=== PATIENT | female | born 1980 | race Caucasian/White ===

== ENCOUNTER 2021-06-04 09:13 | Outpatient (CLI) | payer OTHER, SELFPAY ==
--- NOTE | ~2021-06-04 | MM_ITS ---
EXAMINATION: MM screening [facility] BI w gertrude HISTORY: Screening mammogram TECHNIQUE: Craniocaudal and mediolateral oblique 3-D tomosynthesis images were obtained and synthetic 2-D images were generated. CAD analysis was submitted and interpreted. COMPARISON: 11/26/2018 BREAST PARENCHYMAL COMPOSITION: The breasts are extremely dense, which lowers the sensitivity of mamm ography. FINDINGS: An asymmetry in the posterior third of the left breast on the craniocaudal is stable, consi stent with benign finding. There is no evidence of suspicious mass, calcification, or architectural d istortion to suggest malignancy in either breast. There has been no suspicious interval change. IMPRESSION: 1. No mammographic evidence of malignancy. 2. Recommend routine screening mammography in one year. BI-RADS Category 2: Benign finding(s). Reviewed, dictated and finalized at location A.
== END 2021-06-04 09:14 | disposition home or self-care (01) ==
LOC: ANHIMG 09:20
PROVIDERS: PCP Family Medicine; Visit Provider Family Medicine
DX: Z12.31 Encounter for screening mammogram for malignant neoplasm of breast (principal)
CPT/HCPCS: 77063; 77067

== ENCOUNTER 2022-11-04 23:13 | Emergency (ER) | payer OTHER, SELFPAY ==
--- NOTE | ~2022-11-04 | CT_ITS ---
EXAMINATION: CT abdomen pelvis w con DATE: 11/05/2022 02:36 INDICATION: Lower abdominal pain, fever, nausea, vomiting and diarrhea. TECHNIQUE: Computed tomography (CT) of the abdomen and pelvis was performed with 100 mL Omnipaque-350 intravenous contrast. Automated exposure control and iterative reconstruction technique were employe d. The dose-length product was 932.86 mGy-cm. COMPARISON: None FINDINGS: Lung bases are clear. Heart size is normal. No pericardial or pleural effusion. Small sliding-type hi atal hernia. Liver, gallbladder, spleen, pancreas, left kidney and bilateral adrenal glands are noel l. 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 9 mm cyst at the lower pole of the right kidney. Bladder, anteverted uterus and bilateral adnexa are unre markable. Normal appendix. There is fluid throughout the colon consistent with diarrhea. There is muc osal enhancement along the sigmoid colon which demonstrates a featureless ahaustral pattern. There is also mild wall thickening at the distal ileum. No bowel obstruction. No abscess or free intraperiton eal gas or fluid. No pathologically enlarged abdominal or pelvic lymphadenopathy. Mild scattered dege nerative skeletal changes. IMPRESSION: 1. There is mild edematous wall thickening in the distal small bowel consistent with nonspecific ilei tis which could be infectious or inflammatory in etiology including Crohn's disease. 2. Mucosal enhancement with featureless haustral pattern in the distal sigmoid colon but without sign ificant wall thickening or potentially sequela of prior colitis. Reviewed, dictated and finalized at location A. UNTING AUDITOR IMPRESSION: 1. There is mild edematous wall thickening in the distal small bowel consistent with nonspecific ileitis which could be infectious or inflammatory in etiology including Crohn's disease. 2. Mucosal enhancement with featureless haustral pattern in the distal sigmoid colon but without significant wall thickening or potentially sequela of prior c olitis.
--- NOTE | ~2022-11-04 | XR_ITS ---
EXAMINATION: XR chest 2V DATE: 11/05/2022 03:42 INDICATION: Fever, abdominal pain and diarrhea TECHNIQUE: PA and lateral views of the chest were obtained. COMPARISON: Chest radiograph dated 10/30/2016 FINDINGS: The lungs remain clear with no focal airspace opacities, pulmonary edema, pleural effusion or pneumot horax. The cardiomediastinal silhouette is normal. Mild thoracic dextrocurvature with mild spondylosi s. IMPRESSION: 1. No acute cardiopulmonary disease. Reviewed, dictated and finalized at location A. EKEEPING/LAUNDRY SUPERVISOR
[2022-11-04 23:17] VITALS: BP 146/94; PULSE 114; RESP 18; TEMP 37.3; O2SAT 99
[2022-11-05] VITALS (24 sets, daily range): BP systolic 105–129; BP diastolic 66–79; PULSE 92; RESP 17; TEMP 38.3; O2SAT 96–99
[2022-11-05 00:02] LABS: Basophils Absolute Auto 0.1 K/mm3 (0.0-0.1); Basophils Percent Auto 0.4 % (0.2-1.2); Eosinophils Absolute Auto 0.1 K/mm3 (0-0.3); Eosinophils Percent Auto 0.7 % (0-4.4); Hematocrit 42.1 % (37.0-47.0); Hemoglobin 14.3 g/dL (12.0-15.0); Immature Granulocyte Absolute 0.05 K/mm3 (0.00-0.031); Immature Granulocyte Percent A 0.4 % (0-0.5); Lymphocytes Absolute Auto 0.81 K/mm3 (0.9-3.2); Lymphocytes Percent Auto 6.2 % (18.3-44.2); Mean Corpuscular Hemoglobin 29.1 pg (26-34); Mean Corpuscular Volume 85.6 fl (80-100); Mean Platelet Volume 10.9 fl (7.4-10.4); Monocytes Percent Auto 7.7 % (2.6-8.5); Neutrophils Percent Auto 84.6 % (45.5-73.1); Platelet Count Result 267 k/mm3 (150-375); Red Blood Count 4.92 M/mm3 (4.2-5.4); Red Cell Distribution Width 13.3 % (11.5-14.5)
[2022-11-05 00:16] LABS: Appearance Urine Clear (Clear); Bacteria Urine None Seen /hpf; Bilirubin Urine Negative (Negative); Blood Urine 3+ (Negative); Color Urine Yellow (Yellow); Glucose Urine UA Negative (Negative); Ketones Urine Negative (Negative); Leukocyte Esterase Ur Trace LEU/UL (Negative); Nitrate Urine Negative (Negative); Non Pathogenic Casts 0-2; Protein Urine Negative (Negative); RBC Urine 0-2 /hpf (0-2); Specific Grav Ur 1.008 (1.001-1.035); Squamous Epithelial Cell Urine Occasional /hpf (Few); Urobilinogen Urine 0.2 mg/dL (<2.0); pH Urine 5.5 (5.0-9.0)
[2022-11-05 00:24] LABS: Add Urine Microscopic? YES
--- NOTE | 2022-11-05 01:29 | ED.GENADULT ---
HPI - General Adult General Chief complaint: Fever <JOYCELYN Harden Last Filed: 11/05/22 03:35> Stated complaint: fever <JOYCELYN Harden Last Filed: 11/05/22 03:35> Time Seen by Provider: 11/05/22 00:29 <Fernanda Michael PA-C - Last Filed: 11/05/22 03:35> Source: patient <JOYCELYN Harden Last Filed: 11/05/22 03:35> Mode of arrival: ambulatory <JOYCELYN Harden Last Filed: 11/05/22 03:35> Limitations: no limitations <JOYCELYN Harden Last Filed: 11/05/22 03:35> History of Present Illness HPI narrative: Patient is a 42-year-old female who presents to the ED with multiple complaints. Patient reports she began feeling unwell yesterday (). She complained of a fever up to 101 ?F at home, nausea, diarrhea, lower abdominal pain. She took Tylenol at home but denied relief of her fever, which prompted her presentation. Patient states she is concerned she may have an infection as she left a tampon in for 24 hours. She states she remove this at 8 PM last night (). She forgot it was still in and reported having an odor to it when she removed it. She otherwise denies any cough, cold symptoms, chest pain, difficulty breathing, urinary symptoms. Denies sick contacts. <Fernanda Michael PA-C - Last Filed: 11/05/22 03:35> Related Data Allergies/adverse reactions: Allergies Allergy/AdvReac Type Severity Reaction Status Date / Time No Known Allergies Allergy Verified 11/05/22 00:05 <Fernanda Michael PA-C - Last Filed: 11/05/22 03:35> Review of Systems Review of Systems: CONSTITUTIONAL: See HPI. ENT: Denies rhinorrhea, congestion, sore throat. CARDIOVASCULAR: Denies chest pain. RESPIRATORY: Denies cough or dyspnea. GASTROINTESTINAL: See HPI. GENITOURINARY: Denies dysuria or hematuria. <Fernanda Michael PA-C - Last Filed: 11/05/22 03:35> All systems reviewed & are unremarkable except as noted in HPI and below <Fernanda Michael PA-C - Last Filed: 11/05/22 03:35> [facility] Past Medical History Medical History: Medical History Depression <Fernanda Michael PA-C - Last Filed: 11/05/22 03:35> Surgical History Surgical History: Surgical History (Updated 11/05/22 @ 01:36 by Fernanda Michael PA-C) No pertinent past surgical history <Fernanda Michael PA-C - Last Filed: 11/05/22 03:35> Social History Social History: Social History Smoking status: Former smoker Second hand tobacco smoke exposure: No Smoking end date: 08/31/06 Alcohol intake: current <Fernanda Michael PA-C - Last Filed: 11/05/22 03:35> Exam Narrative: GENERAL: Mildly ill appearing, obese, non-toxic, in no acute distress. HEAD: Normocephalic, atraumatic. NECK: Supple. No adenopathy, no masses. RESPIRATORY: Airway patent, respirations nonlabored. Clear to auscultation bilaterally, no rales, rhonchi, wheezing. CARDIOVASCULAR: Regular rate and rhythm without murmurs, rubs, or gallops. Radial pulses 2+ and equal bilaterally. ABDOMINAL: Soft, tenderness throughout lower abdomen, worst over suprapubic region, nondistended, no hepatosplenomegaly. Normoactive BS. MUSCULOSKELETAL: Moves all extremities. Strength/ROM intact without gross deformities. SKIN: Warm, dry, normal color. No rashes. No desquamation. NEURO: A&O X3. Speech clear. Cranial nerves II-XII grossly intact. Steady gait. No ataxic movements. PSYCHIATRIC: Appropriate mood and affect. Normal interaction. <Fernanda Michael PA-C - Last Filed: 11/05/22 03:35> Course Vital Signs Vital signs: Vital Signs Temperature 99.2 F 11/04/22 23:17 Pulse Rate 114 H 11/04/22 23:17 Respiratory Rate 18 11/04/22 23:17 Blood Pressure 146/94 H 11/04/22 23:17 Pulse Oximetry 99 11/04/22 23:17 Oxygen Deliv
[2022-11-05] MEDS: ONDANSETRON INJ 4 MG/2 ML VIAL IV PUSH (01:31)
[2022-11-05] MEDS: SODIUM CHLORIDE 0.9% IV 1,000 ML 999 ML IV CONT ×2 (01:31→03:50)
[2022-11-05 01:40] LABS: Alanine Aminotransferase 20 U/L (6-35); Albumin Level 4.3 g/dL (3.5-5.1); Alkaline Phosphatase 110 U/L (38-126); Anion Gap 8 mmol/L (8-16); Aspartate Amino Transferase 21 U/L (14-36); Bilirubin,Total 0.7 mg/dL (0.2-1.3); Blood Urea Nitrogen 9 mg/dL (7-17); Calcium 8.1 mg/dL (8.4-10.2); Carbon Dioxide 25 mmol/L (22-30); Chloride 104 mmol/L (98-107); Estimated CRCL calculation 135 ml/min; Estimated Glomerular Filt Rate > 60; Glucose 100 mg/dL (65-110); Lipase 72 U/L (23-300); Potassium 3.6 mmol/L (3.4-5.0); Sodium 137 mmol/L (137-145)
[2022-11-05 02:16] LABS: Influenza A QL RT-PCR Negative (Negative); Influenza B QL RT-PCR Negative (Negative); SARS-CoV-2 RNA PCR Negative
[2022-11-05 02:23] LABS: Lactic Acid Reflex 1.3 mmol/L (0.7-2.0)
== END 2022-11-05 05:59 | disposition home or self-care (01) ==
PROVIDERS: Emergency Medicine; Emergency Provider Physician Assistant; PCP Family Medicine
DX: K52.9 Noninfective gastroenteritis and colitis, unspecified (principal); R82.998 Other abnormal findings in urine; Z20.822 Contact with and (suspected) exposure to COVID-19; Z87.891 Personal history of nicotine dependence
CPT/HCPCS: 36415; 71046; 74177; 80053; 81001; 81025; 83605; 83690; 85025; 87077; 87086; 87088; 87636; 96361; 96365; 96375; 99284; J0131; J2405; J7030; Q9967